=== PATIENT | female | born 1960 | race Hispanic/Latino ===

== ENCOUNTER 2016-10-20 02:18 | Inpatient (IN) | payer MEDICAID, OTHER ==
[2016-10-20 02:18] VITALS: BMI 25.7
[2016-10-20 02:38] VITALS: O2SAT 98
--- NOTE | 2016-10-20 03:37 | ED PDOC ---
HPI: Psych/Substance Abuse Time Seen by Provider: 10/20/16 02:32 Chief Complaint (Nursing): Psychiatric Evaluation Chief Complaint (Provider): Psychiatric Evaluation History Per: Patient History/Exam Limitations: no limitations Onset/Duration Of Symptoms: Days (x7) Current Symptoms Are (Timing): Still Present Suicide/Self Injury Attempted (Context): None Modifying Factor(s): None Associated Symptoms: Depression. denies: Suicidal Thoughts, Suicidal Plan Additional Complaint(s): 56 year old female presents to ED with complaints of depression x1 week and has a past medical history of depression and anxiety. Patient notes that she has had previous admissions to psych and that she is currently undomiciled. States that her disability papers were not completed by her provider, which caused her to lose disability, housing, and access to psychiatric medication. Denies suicidal/homicidal ideation and hallucinations. PCP: Emilia Past Medical History Reviewed: Historical Data, Nursing Documentation, Vital Signs Vital Signs: Last Vital Signs Temp 97.8 F 10/20/16 02:35 Pulse 115 H 10/20/16 02:35 Resp 18 10/20/16 02:35 BP 109/63 10/20/16 02:35 Pulse Ox 98 10/20/16 02:35 - Medical History PMH: Anxiety, Arthritis (spinal), Back Problems (previous pinched nerve), Depression, Gall Bladder Disease, Hypothyroidism, Schizophrenia Denies: Diabetes, Hepatitis - Surgical History Surgical History: Cholecystectomy Other surgeries: Correctiv surgery metatarsals bilaterally - Family History Family History: States: Unknown Family Hx, Diabetes - Social History Current smoker - smoking cessation education provided: Yes Ex-Smoker (has not smoked in the last 12 months): No Alcohol: Occasional Drugs: Denies - Immunization History Hx Tetanus Toxoid Vaccination: No Hx Influenza Vaccination: No Hx Pneumococcal Vaccination: No - Home Medications Home Medications: Ambulatory Orders Medication Instructions Recorded Levothyroxine [Synthroid] 25 mcg PO DAILY@0630 #30 tab 09/07/16 PARoxetine [Paxil] 10 mg PO DAILY #30 tab 09/07/16 QUEtiapine [SEROquel] 200 mg PO HS #30 tab 09/07/16 - Allergies Allergies/Adverse Reactions: Allergies Allergy/AdvReac Type Severity Reaction Status Date / Time No Known Allergies Allergy Verified 10/20/16 02:35 Review of Systems ROS Statement: Except As Marked, All Systems Reviewed And Found Negative Psych: Positive for: Anxiety, Depression. Negative for: Psychosis (no hallucinations), Suicidal ideation, Other (homicidal ideation) Physical Exam - Reviewed Nursing Documentation Reviewed: Yes Vital Signs Reviewed: Yes - Physical Exam Appears: Positive for: Non-toxic, No Acute Distress Skin: Positive for: Normal Color, Warm, Dry Eye Exam: Positive for: Normal appearance ENT: Positive for: Normal ENT Inspection Neck: Positive for: Normal Cardiovascular/Chest: Positive for: Regular Rate, Rhythm. Negative for: Murmur Respiratory: Positive for: Normal Breath Sounds. Negative for: Respiratory Distress Gastrointestinal/Abdominal: Positive for: Normal Exam Back: Positive for: Normal Inspection Extremity: Positive for: Normal ROM. Negative for: Deformity Neurologic/Psych: Positive for: Alert, Oriented, Mood/Affect (depressed/tearful) - Laboratory Results Result Diagrams: 10/20/16 04:30 10/20/16 04:30 - ECG O2 Sat by Pulse Oximetry: 98 (RA) Pulse Ox Interpretation: Normal Medical Decision Making Medical Decision Makin Initial impression: depression in setting of known psychiatric illness Initial plan: * Crisis eval 0415 Patient was evaluated by crisis and will be admitted for treatment and stabilization. Patient is medically stable for psychiatric admission. Dx: depression Scribe Attestation: Documented by Gayatri Perez acting as a scribe for John Jenkins MD. Scribe Attestation: All medical record entries made by the Scribe were at my direction and personally dictated by me. I have reviewed the chart and agree that the record accurately reflects my personal performance of the history, physical exam, medical decision making, and the department course for this patient. I have also personally directed, reviewed, and agree with the discharge instructions and disposition. Disposition - Clinical Impression Clinical Impression: Depression - Patient ED Disposition Is Patient to be Admitted: Yes - Disposition Disposition: Routine/Home Disposition Time: 04:15 Condition: FAIR - Pt Status Changed To: Hospital Disposition Of: Inpatient - Admit Certification Admit to Inpatient:: After my assessment, the patient will require hospitalization for at least two midnights. This is because of the severity of symptoms shown, intensity of services needed, and/or the medical risk in this patient being treated as an outpatient.
[2016-10-20 04:35] LABS: BASO # 0.1 K/uL (0.0-0.2); BASO % 1.3 % (0.0-2.0); EOS # 0.2 K/uL (0.0-0.7); EOS % 2.3 % (0.0-4.0); HEMATOCRIT 36.9 % (34.0-47.0); LYMPH # 2.2 K/uL (1.0-4.3); MEAN CELL VOLUME 90.4 fl (81.0-99.0); MEAN CORPUSCULAR HEMOGLOBIN 31.3 pg (27.0-31.0); MEAN CORPUSCULAR HGB CONC 34.7 g/dL (33.0-37.0); MONO # 0.4 K/uL (0.0-0.8); MONO % 6.2 % (0.0-10.0); NEUT # 4.2 K/uL (1.8-7.0); NEUT % 59.2 % (50.0-75.0); NRBC % 0.2 % (0.0-0.0); RED CELL DISTRIBUTION WIDTH 16.1 % (11.5-14.5); WHITE BLOOD COUNT 7.1 K/uL (4.8-10.8)
[2016-10-20 05:17] LABS: ALB/GLOB RATIO 1.2 (1.0-2.1); ALCOHOL SERUM 139 mg/dl (0-10); ALKALINE PHOSPHATASE 71 U/L (38-126); ALT/SGPT 49 U/L (9-52); AST/SGOT 27 U/L (14-36); BILIRUBIN,TOTAL 0.4 mg/dl (0.2-1.3); BLOOD UREA NITROGEN 11 mg/dl (7-17); CARBON DIOXIDE 20 mmol/L (22-30); CHLORIDE 111 mmol/L (98-107); GFR AFRICAN-AMERICAN > 60; GLUCOSE,RANDOM 99 mg/dL (65-105); POTASSIUM 4.3 MMOL/L (3.6-5.0); SODIUM 148 mmol/l (132-148); TOTAL PROTEIN 7.8 G/DL (6.3-8.2)
[2016-10-20 06:15] LABS: RBC URINE 1 /hpf (0-3); URINE BILIRUBIN NEGATIVE (NEGATIVE); URINE BLOOD NEGATIVE (NEGATIVE); URINE COLOR STRAW (YELLOW); URINE GLUCOSE (UA) NEG (Normal); URINE KETONE NEGATIVE (NEGATIVE); URINE LEUKOCYTE ESTERASE NEG Leu/uL (Negative); URINE PROTEIN NEGATIVE (NEGATIVE); URINE UROBILINOGEN 0.2-1.0 mg/dL (0.2-1.0); WBC URINE 1 /hpf (0-5)
--- NOTE | 2016-10-20 10:43 | RAD ---
HISTORY: Chest pain COMPARISON: 09/05/2016 FINDINGS: LUNGS: The lungs are well inflated and clear. PLEURA: No significant pleural effusion identified, no pneumothorax apparent. CARDIOVASCULAR: Normal. OSSEOUS STRUCTURES: No significant abnormalities. VISUALIZED UPPER ABDOMEN: Normal. OTHER FINDINGS: None. IMPRESSION: No active pulmonary disease.
[2016-10-20] MEDS ORDERED: Alum-Mag Hydrox-Simethicone Susp (30 mL) PO PRN (11:49)
[2016-10-20] MEDS ORDERED: DiphenhydrAMINE 50 mg/ml Inj IM PRN (11:49)
[2016-10-20] MEDS ORDERED: Magnesium Hydroxide Susp 30 ml UD PO PRN (11:49)
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
--- NOTE | 2016-10-20 18:18 | CARD ---
APPROVED REPORT EKG Measurement Heart [id number] <Conclusion> Normal sinus rhythm Low voltage QRS Borderline ECG
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
[2016-10-21 07:56] LABS: CHOLESTEROL 173 mg/dL (0-199)
--- NOTE | 2016-10-21 11:07 | PCM.PYCHPN ---
Psychiatric Progress Note - Psychiatric Progress Note Patient seen today, length of contact: Patient evaluated, case discussed with team, chart reviewed Patient Chief Complaint: "I'm okay" Problems Identified/Issues Discussed: Patient submitted a 48 hour letter, then retracted it, saying that she wants to stay for treatment. Patient reports continued anxiety. She denies side effects to medications. NO hallucinations/paranoia/delusions/SI/HI. Medication Change: No Medical Record Reviewed: Yes Mental Status Examination - Cognitive Function Orientation: Person, Place, Situation, Time Memory: Intact Attention: WNL Concentration: WNL Association: WNL Fund of Knowledge: WN - Mood Mood: Depressed, Anxious - Affect Affect: Broad - Speech Speech: Appropriate - Formal Thought Process Formal Thought Process: No Impairment Psychotic Thoughts and Behaviors: NO AH/VH/paranoia - Suicidal Ideation Suicidal Ideation: No - Homicidal Ideation Homicidal Ideation: No Goal/Treatment Plan - Goal/Treatment Plan Need for Continued Stay: Remain at risks for inpatient hospitalization, Severe depression anxiety Progress Toward Problem(s) and Goals/Treatment Plan: Impression: 56 yo female presents with depressed mood and anxiety, no SI/HI in the context of chronic cocaine and marijuana abuse, last use 2 days ago. Patient likely has Major Depressive Disorder r/o substance induced mood disorder ; anxiety; cocaine and marijuana abuse. Plan: -Nicotine patch -Continue Zoloft 50 mg PO Daily -[place] Seroquel 100 mg PO HS Estimated Date of D/C: 10/23/16 - Smoking Cessation Smoking Cessation Initiated: Yes
[2016-10-22 05:53] VITALS: RESP 18
--- NOTE | 2016-10-22 08:53 | PCM.PYCHPN ---
Psychiatric Progress Note - Psychiatric Progress Note Patient seen today, length of contact: Patient evaluated, case discussed with team, chart reviewed Patient Chief Complaint: "I'm okay" Problems Identified/Issues Discussed: Patient continues to improve clinically. At this time, she is requesting to be discharged tomorrow. She reports that she feels very anxious today. She denies adverse effects to medications. Patient counseled on the importance of compliance with treatment and medications and substance abuse cessation. NO hallucinations/paranoia/delusions/SI/HI. Medication Change: No Medical Record Reviewed: Yes Mental Status Examination - Cognitive Function Orientation: Person, Place, Situation, Time Memory: Intact Attention: WNL Concentration: WNL Association: WNL Fund of Knowledge: [facility] Decription of patient's judgement and insights: Fair I/J - Mood Mood: Anxious - Affect Affect: Broad - Speech Speech: Appropriate - Formal Thought Process Formal Thought Process: No Impairment Psychotic Thoughts and Behaviors: NO psychotic symptoms - Suicidal Ideation Suicidal Ideation: No - Homicidal Ideation Homicidal Ideation: No Goal/Treatment Plan - Goal/Treatment Plan Need for Continued Stay: Severe depression anxiety Progress Toward Problem(s) and Goals/Treatment Plan: Impression: 56 yo female presents with depressed mood and anxiety, no SI/HI in the context of chronic cocaine and marijuana abuse, last use 2 days prior to admission. Patient likely has Major Depressive Disorder r/o substance induced mood disorder; anxiety; cocaine and marijuana abuse. Plan: -Nicotine patch -Continue Zoloft 50 mg PO Daily -[place] Seroquel 100 mg PO HS Estimated Date of D/C: 10/23/16
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
[2016-10-23 06:07] VITALS: BP 122/92; PULSE 78; TEMP 97.2
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
== END 2016-10-23 13:10 | disposition home or self-care (01) | DRG 426 ==
LOC: H.ER 02:18 → H.ERHOLD 04:14 → H.STEP 09:44
PROVIDERS: ADMIT Psychiatry & Neurology Psychiatry; ATTEND Psychiatry & Neurology Psychiatry
PROC: GZHZZZZ Group Psychotherapy (ICD-10-PCS; principal; 2016-10-20)
DX: F32.9 Major depressive disorder, single episode, unspecified (principal); Z91.19 Patient's noncompliance with other medical treatment and regimen; F14.10 Cocaine abuse, uncomplicated; E03.9 Hypothyroidism, unspecified; F41.9 Anxiety disorder, unspecified; Z59.0 Homelessness; M19.90 Unspecified osteoarthritis, unspecified site; F17.210 Nicotine dependence, cigarettes, uncomplicated; F12.10 Cannabis abuse, uncomplicated; G89.29 Other chronic pain

== ENCOUNTER 2017-02-13 20:29 | Observation (INO) | payer OTHER ==
[2017-02-13 20:29] VITALS: BMI 25.7
[2017-02-13 20:32] VITALS: RESP 16
[2017-02-13 21:23] LABS: BASO # 0.1 K/uL (0.0-0.2); BASO % 1.2 % (0.0-2.0); EOS % 0.3 % (0.0-4.0); LYMPH # 2.3 K/uL (1.0-4.3); LYMPH % 23.1 % (20.0-40.0); MEAN CELL VOLUME 89.1 fl (81.0-99.0); MEAN CORPUSCULAR HEMOGLOBIN 29.6 pg (27.0-31.0); MEAN CORPUSCULAR HGB CONC 33.2 g/dL (33.0-37.0); MEAN PLATELET VOLUME 7.1 fl (7.2-11.7); MONO # 0.5 K/uL (0.0-0.8); MONO % 5.5 % (0.0-10.0); NEUT # 6.9 K/uL (1.8-7.0); NEUT % 69.9 % (50.0-75.0); RBC 4.38 Mil/uL (3.80-5.20); RED CELL DISTRIBUTION WIDTH 15.2 % (11.5-14.5); WHITE BLOOD COUNT 9.8 K/uL (4.8-10.8)
[2017-02-13 21:29] LABS: ALB/GLOB RATIO 1.4 (1.0-2.1); ALBUMIN 4.3 g/dL (3.5-5.0); ALT/SGPT 32 U/L (9-52); AST/SGOT 30 U/L (14-36); BLOOD UREA NITROGEN 8 mg/dl (7-17); CALCIUM 8.9 mg/dL (8.4-10.2); GFR AFRICAN-AMERICAN > 60; GFR NON-AFRICAN AMERICAN > 60
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
[2017-02-13 22:05] LABS: ACETAMINOPHEN < 10.0 ug/ml (10.0-30.0); SALICYLATE < 1.0 mg/dl
[2017-02-13] MEDS ORDERED: Potassium Chloride 20 mEq ER Tab PO STA (22:17)
--- NOTE | 2017-02-13 22:21 | CT ---
EXAM: CT Head Without Intravenous Contrast CLINICAL HISTORY: 56 years old, female; Injury or trauma; Fall; Initial encounter; Concussion / head injury; Consciousness not specified; Injury details: Witnessed fall; Additional info: Fall, head injury TECHNIQUE: Axial computed tomography images of the head/brain without intravenous contrast. This CT exam was performed using one or more of the following dose reduction techniques: automated exposure control, adjustment of the mA and/or kV according to patient size, and/or use of iterative reconstruction technique. Coronal and sagittal reformatted images were created and reviewed. COMPARISON: No relevant prior studies available. FINDINGS: Brain: No acute intracranial hemorrhage. No significant white matter disease. No edema. Basal ganglia calcifications are present. Ventricles: No significant ventriculomegaly. Bones: No acute displaced fracture. Sinuses: Air-fluid levels are identified within the left maxillary sinus. Mastoid air cells: Unremarkable as visualized. No mastoid effusion. IMPRESSION: No acute intracranial hemorrhage, or suspicious mass effect. Air-fluid levels within the left maxillary sinus. Basal ganglia mineralization is prominent considering the patient's age. Still, this may be physiologic. Other considerations are prior infection, thyroid/parathyroid disease or inherited metabolic conditions.
--- NOTE | 2017-02-13 22:25 | CT ---
EXAM: CT Cervical Spine Without Intravenous Contrast CLINICAL HISTORY: 56 years old, female; Injury or trauma; Fall; Initial encounter; Blunt trauma; Injury details: A witnessed fall; Additional info: Fall, head injury TECHNIQUE: Axial computed tomography images of the cervical spine without intravenous contrast. This CT exam was performed using one or more of the following dose reduction techniques: automated exposure control, adjustment of the mA and/or kV according to patient size, and/or use of iterative reconstruction technique. Coronal and sagittal reformatted images were created and reviewed. COMPARISON: No relevant prior studies available. FINDINGS: Vertebrae: No acute fracture. Alignment: Preservation of the normal curvature of the cervical spine. Discs/spinal canal/neural foramina: No acute findings. Severe degenerative disease is identified, with osteophyte formation, disc space narrowing, endplate changes and vacuum phenomenon. Soft tissues: Symmetric. Lung apices: The visualized lung apices are clear. Inflammatory sinus disease is also present. IMPRESSION: Degenerative disease, without acute fracture.
[2017-02-14] MEDS ORDERED: Potassium Chloride 20 mEq ER Tab PO ONE (00:24)
--- NOTE | 2017-02-14 00:25 | ED PDOC ---
- Laboratory Results Result Diagrams: 02/13/17 21:14 02/13/17 21:14 - ECG O2 Sat by Pulse Oximetry: 98 (RA) Pulse Ox Interpretation: Normal Medical Decision Making Medical Decision Making: Time: 0000 Initial plan: --Patient signed out to me by Dr. Mancuso. Pending clinical sobriety and re- evaluation. --0600: Re-evaluation/Discharge: Patient is awake, alert and oriented x3. Gait is steady and speech is clear. Patient stable for discharge. --Discharge Instructions: Re-evaluation. Patient feels better. Discussed results and plan with patient who expresses understanding. Counseling was provided regarding the diagnosis and prognosis. All questions answered and there is agreement with the plan to discharge home with instructions. Patient stable for discharge. Return if symptoms persist or worsen. --Diagnosis: Alcohol Intoxication Scribe Attestation: Documented by Snehal Man, acting as a scribe for John Jenkins MD. MD Scribe Attestation: All medical record entries made by the Scribe were at my direction and personally dictated by me. I have reviewed the chart and agree that the record accurately reflects my personal performance of the history, physical exam, medical decision making, and the department course for this patient. I have also personally directed, reviewed, and agree with the discharge instructions and disposition. Disposition - Clinical Impression Clinical Impression: Alcohol abuse with intoxication - POA Present On Arrival: None - Disposition Disposition: Routine/Home Disposition Time: 00:00 Condition: STABLE ED OBSERVATION Date of observation admission: 02/13/17 Time of observation admission: 00:00 - Observation admission statement Patient is being placed in observation because:: Alcohol Intoxication and re-evaluation. - Goals of Observation Goals of observation are:: Clinical sobriety - Progress Note Progress Note: 02/14/17 01:30 Pending Clinical Sobriety 02/14/17 03:00 Pending Clinical Sobriety 02/14/17 04:30 Pending Clinical Sobriety
[2017-02-14 00:48] LABS: URINE BACTERIA OCC (<OCC); URINE BILIRUBIN NEGATIVE (NEGATIVE); URINE BLOOD SMALL (NEGATIVE); URINE CLARITY SLIGHTY-CLOUDY (Clear); URINE COLOR YELLOW (YELLOW); URINE GLUCOSE (UA) NEG (Normal); URINE LEUKOCYTE ESTERASE NEG Leu/uL (Negative); URINE NITRATE NEGATIVE (NEGATIVE); URINE PROTEIN NEGATIVE (NEGATIVE); URINE UROBILINOGEN 0.2-1.0 mg/dL (0.2-1.0)
[2017-02-14 00:57] LABS: BARBITURATES, UR NEGATIVE (NEGATIVE); BENZODIAZEPINES, UR NEGATIVE (NEGATIVE); OPIATES, UR NEGATIVE (NEGATIVE); PHENCYCLIDINE, UR NEGATIVE (NEGATIVE)
[2017-02-14 06:25] VITALS: BP 134/79; PULSE 78; TEMP 98
[2017-02-14 06:32] VITALS: O2SAT 98
== END 2017-02-14 06:25 | disposition home or self-care (01) ==
LOC: H.ER 20:29 → H.EROBSV 21:08
PROVIDERS: ADMIT Emergency Medicine; ATTEND Emergency Medicine
DX: F10.129 Alcohol abuse with intoxication, unspecified (principal); Y90.8 Blood alcohol level of 240 mg/100 ml or more; E03.9 Hypothyroidism, unspecified; F17.200 Nicotine dependence, unspecified, uncomplicated; F20.9 Schizophrenia, unspecified; F31.9 Bipolar disorder, unspecified; F41.9 Anxiety disorder, unspecified

== ENCOUNTER 2017-05-24 08:27 | Day surgery (SDC) | payer MEDICAID ==
[2017-05-24] MEDS ORDERED: Lactated Ringer's 1,000 ML IV ONE (09:33)
[2017-05-24] MEDS ORDERED: Propofol 10 mg/ml Inj (20 ML) ONE (11:56)
[2017-05-24] MEDS ORDERED: Lidocaine 2% MPF (5 ml) Inj ONE (11:56)
[2017-05-24 12:27] VITALS: TEMP 97
[2017-05-24 12:34] VITALS: BP 103/60; PULSE 75; RESP 18; O2SAT 99
== END 2017-05-24 12:37 | disposition home or self-care (01) ==
LOC: H.ENDO 08:27
PROVIDERS: ATTEND Internal Medicine Gastroenterology
DX: Z12.11 Encounter for screening for malignant neoplasm of colon (principal); K64.8 Other hemorrhoids
CPT/HCPCS: 45378; J2704; J7120

== ENCOUNTER 2018-02-14 17:20 | Emergency (ER) | payer MEDICAID ==
[2018-02-14 17:25] VITALS: BP 101/61; PULSE 99; RESP 16; TEMP 98.2; O2SAT 99
[2018-02-14 17:26] VITALS: BMI 24.0
== END 2018-02-14 18:48 | disposition left against medical advice (07) ==
LOC: H.ER 17:20
DX: Z02.89 Encounter for other administrative examinations (principal)